=== PATIENT | female | born 1995 | race African-American/Black ===

== ENCOUNTER 2017-06-25 23:04 | Emergency (ER) | payer MEDICAID | END 2017-06-26 01:38 | disposition home or self-care (01) | LOC: D.ER 23:04 | DX: S00.83XA Contusion of other part of head, initial encounter (principal); Y04.2XXA Assault by strike against or bumped into by another person, initial encounter; Y93.89 Activity, other specified; Y92.512 Supermarket, store or market as the place of occurrence of the external cause; S00.81XA Abrasion of other part of head, initial encounter; S16.1XXA Strain of muscle, fascia and tendon at neck level, initial encounter; F17.200 Nicotine dependence, unspecified, uncomplicated ==